=== PATIENT | female | born 1960 | race American Indian/Alaskan Native ===

== ENCOUNTER 2019-03-24 10:53 | Emergency (ER) | payer BC ==
--- NOTE | 2019-03-24 11:35 | Emergency Department Report ---
Blank Doc - Documentation Documentation: 58-year-old female that presents with abdominal pain with n/v. This initial assessment/diagnostic orders/clinical plan/treatment(s) is/are subject to change based on patient's health status, clinical progression and re- assessment by fellow clinical providers in the ED. Further treatment and workup at subsequent clinical providers discretion. Patient/guardians urged not to elope from the ED as their condition may be serious if not clinically assessed and managed. Initial orders include: 1- Patient sent to [facility] for further evaluation and treatment 2- labs 3- UA
[2019-03-24 12:12] LABS: Basophils % (Auto) 0.5 % (0.0-1.8); Eosinophils # (Auto) 0.1 K/mm3 (0.0-0.4); Eosinophils % (Auto) 0.9 % (0.0-4.3); Hematocrit 38.8 % (30.3-42.9); Hemoglobin 13.2 gm/dl (10.1-14.3); Lymphocytes # (Auto) 3.3 K/mm3 (1.2-5.4); Mean Corpuscular HGB Conc 34 % (30-34); Mean Corpuscular Volume 86 fl (79-97); Monocytes # (Auto) 0.6 K/mm3 (0.0-0.8); Platelet Count 327 K/mm3 (140-440); Red Blood Count 4.53 M/mm3 (3.65-5.03); Red Cell Distribution Width 14.3 % (13.2-15.2)
[2019-03-24 12:37] LABS: Alanine Aminotransferase 14 units/L (7-56); Albumin 4.3 g/dL (3.9-5); BUN/Creatinine Ratio 17; Blood Urea Nitrogen 15 mg/dL (7-17); Calcium 9.5 mg/dL (8.4-10.2); Hemolysis Index 13
[2019-03-24 18:11] LABS: Bilirubin,Urine NEG (Negative); Blood,Urine NEG (Negative); Color,Urine Straw (Yellow); Mucus,Urine FEW /HPF; Protein,Urine <15 mg/dL mg/dL (Negative); Urobilinogen,Urine < 2.0 mg/dL (<2.0)
[2019-03-24 19:36] VITALS: BP 116/76
--- NOTE | 2019-03-24 19:53 | Emergency Department Report ---
ED General Adult HPI - General Chief complaint: Nausea/Vomiting/Diarrhea Stated complaint: CHEST PAIN Time Seen by Provider: 03/24/19 11:34 Source: patient Mode of arrival: Wheelchair Limitations: No Limitations - History of Present Illness Initial comments: 58-year-old female presents to the emergency room reporting that she had intermittent left shoulder pain that radiated to her chest. Patient also reports vomiting for 4 days, 2 episodes of diarrhea, chills and hot and cold. Patient also reports she has not been able to sleep since Sunday. Patient reports he has a past medical history of anxiety hypertension and diabetes. Patient states that she is on metformin and lisinopril with hydrochlorothiazide and anxiety medication. Patient reports she does have a primary care provider but felt that she needed to come into the emergency room to be evaluated. Onset/Timin -: days(s) Location: chest, left, upper extremity Radiation: other (chest) Severity scale (0 -10): 9 Quality: stabbing, aching Consistency: intermittent Improves with: none Worsens with: none Associated Symptoms: chest pain, fever/chills, loss of appetite, nausea/vomiting, weakness. denies: shortness of breath Treatments Prior to Arrival: none - Related Data Allergies Allergy/AdvReac Type Severity Reaction Status Date / Time No Known Allergies Allergy Unverified 03/24/19 10:59 ED Review of Systems ROS: Stated complaint: CHEST PAIN Other details as noted in HPI Comment: All other systems reviewed and negative ED Past Medical Hx - Past Medical History Previous Medical History?: Yes Hx Hypertension: Yes Hx Diabetes: Yes Hx Psychiatric Treatment: Yes (anxiety) - Surgical History Past Surgical History?: No - Social History Smoking Status: Never Smoker Substance Use Type: None ED Physical Exam - General Limitations: No Limitations General appearance: alert, in no apparent distress - Head Head exam: Present: atraumatic, normocephalic - Eye Eye exam: Present: normal appearance - ENT ENT exam: Present: mucous membranes moist - Neck Neck exam: Present: tenderness (right trapezius tenderness to palpate) - Respiratory Respiratory exam: Present: normal lung sounds bilaterally. Absent: respiratory distress - Cardiovascular Cardiovascular Exam: Present: regular rate, normal rhythm. Absent: systolic murmur, diastolic murmur, rubs, gallop - GI/Abdominal GI/Abdominal exam: Present: soft, normal bowel sounds - Extremities Exam Extremities exam: Present: normal inspection - Back Exam Back exam: Present: normal inspection - Neurological Exam Neurological exam: Present: alert, oriented X3 - Psychiatric Psychiatric exam: Present: normal affect, normal mood - Skin Skin exam: Present: warm, dry, intact, normal color. Absent: rash ED Course Vital Signs 03/24/19 03/24/19 11:34 19:30 Temperature 98.5 F 97.7 F Pulse Rate 84 75 Respiratory 18 18 Rate Blood Pressure 113/81 Blood Pressure 116/76 [Left] O2 Sat by Pulse 95 99 Oximetry ED Medical Decision Making - Lab Data Result diagrams: 03/24/19 11:42 03/24/19 11:42 No standard instances Roach/QRS: LBBB Qtc: borderline, prolonged - EKG Data When compared to previous EKG there are: previous EKG unavailable - Radiology Data Radiology results: report reviewed Patient: DONNA HAIDER MR#: [id number] : 1960 Acct:[id number] Age/Sex: 58 / F ADM Date: 03/24/19 Loc: ED Attending Dr: Ordering Physician: YOHAN ARCE Date of Service: 03/24/19 Procedure(s): XR chest routine 2V Accession Number(s): [id number] cc: YOHAN ARCE Fluoro Time In Minutes: CHEST 2 VIEWS INDICATION: sob,cough and rales. COMPARISON: None. FINDINGS: Support devices: None. Heart: Within normal limits. Lungs/Pleura: No acute air space or interstitial disease. Elevation left hemidiaphragm. No significant pleural effusion. IMPRESSION: No acute findings. Signer Name: Jose Francisco Hendrix MD Signed: 03/24/2019 8:46 PM Workstation Name: [id number] Transcribed By: ES Dictated By: Jose Francisco Hendrix MD Electronically Authenticated By: Jose Francisco Hendrix MD Signed Date/Time: 03/24/192045 DD/ 44 TD/TT: - Medical Decision Making 58-year-old female presents to the emergency room reporting that she had intermittent left shoulder pain that radiated to her chest. Patient also reports vomiting for 4 days, 2 episodes of diarrhea, chills and hot and cold. Patient also reports she has not been able to sleep since Sunday. Patient reports he has a past medical history of anxiety hypertension and diabetes. Patient states that she is on metformin and lisinopril with hydrochlorothiazide and anxiety medication. Patient reports she does have a primary care provider but felt that she needed to come into the emergency room to be evaluated. Discussed case with Dr. Roque he reviewed patient's chart recommends patient to be referred to [facility] fax sheet given to [employer] engineering secretary at the emergency room aishwarya. 2 points Low Score (0-3 points) Risk of MACE of 0.9-1.7%. Copy Results Next Steps Next Steps [employer] Scores 0-3: 0.9-1.7% risk of adverse cardiac event. In the HEART Score study, these patients were discharged (0.99% in the retrospective study, 1.7% in the prospective study) Scores 4-6: 12-16.6% risk of adverse cardiac event. In the HEART Score study, these patients were admitted to the hospital. (11.6% retrospective, 16.6% prospective) Scores ?7: 50-65% risk of adverse cardiac event. In the HEART Score study, these patients were candidates for early invasive measures. (65.2% retrospective, 5 0.1% prospective) A MACE (Major Adverse Cardiac Event) was defined as all-cause mortality, myocardial infarction, or coronary revascularization. Patient has a heart score of 2. Patient is stable to negative troponin,, EKG is negative for ST [place], it does show probable left atrial enlargement and yovana rderline prolonged [place] interval. Chest x-ray is negative for any acute findings. Patient will be referred to the chest pain protocol for [facility] [place]. Face sheet will be faxed over to attention when the Critical care attestation.: If time is entered above; I have spent that time in minutes in the direct care of this critically ill patient, excluding procedure time. ED Disposition Clinical Impression: Atypical chest pain Disposition: DC-01 TO HOME OR SELFCARE Is pt being admited?: No Does the pt Need Aspirin: No Condition: Stable Instructions: Chest Pain (ED) Additional Instructions: You can take Tylenol or ibuprofen for body aches. Please follow up with her primary care provider. Please follow up with [facility]. They should be giving you a call. I have listed their information below and her discharge summary. Referrals: PRIMARY CARE,MD [Primary Care Provider] - 3-5 Days [facility] [Provider Group] - 3-5 Days
--- NOTE | 2019-03-24 20:50 | XRay Report ---
CHEST 2 VIEWS INDICATION: sob,cough and rales. COMPARISON: None. FINDINGS: Support devices: None. Heart: Within normal limits. Lungs/Pleura: No acute air space or interstitial disease. Elevation left hemidiaphragm. No significan t pleural effusion. IMPRESSION: No acute findings. Signer Name: Jose Francisco Hendrix MD Signed: 03/24/2019 8:46 PM Workstation Name: [id number]
== END 2019-03-24 21:45 | disposition home or self-care (01) ==
LOC: ED 10:53
DX: R07.89 Other chest pain (principal); M25.512 Pain in left shoulder; R11.10 Vomiting, unspecified; R19.7 Diarrhea, unspecified; I10 Essential (primary) hypertension; E11.9 Type 2 diabetes mellitus without complications; F41.9 Anxiety disorder, unspecified; Z79.84 Long term (current) use of oral hypoglycemic drugs
CPT/HCPCS: 36415; 71046; 80053; 81001; 83690; 84484; 85025; 93005; 93010